=== PATIENT | female | born 1990 | race Caucasian/White ===

== ENCOUNTER 2022-08-18 17:12 | Emergency (ER) | payer OTHER ==
[2022-08-18] MEDS ORDERED: Sodium Chloride 0.9% 1000 ML 1,000 ML ONE (17:24)
[2022-08-18] MEDS ORDERED: Zofran 4 MG/2 ML VIAL ONE (17:24)
[2022-08-18] MEDS ORDERED: Quelicin Fliptop 200 MG/10 ML IJ ONE (17:31)
[2022-08-18] MEDS ORDERED: Amidate 20 MG/10 ML IV ONE (17:31)
[2022-08-18] MEDS ORDERED: Zemuron 100 MG/10 ML IJ ONE (17:31)
[2022-08-18] MEDS ORDERED: Propofol 1000 mg/100 ml Bottle 100 ML IV ONE (17:40)
[2022-08-18] MEDS: Propofol 1000 mg/100 ml Bottle 100 ML IV PRN ×2 (17:44→20:13)
[2022-08-18] MEDS ORDERED: Sodium Chloride 0.9% 1000 ML 1,000 ML IV STA (17:45)
[2022-08-18] MEDS ORDERED: VERSED 5 MG/5 ML IV ONE (17:48)
[2022-08-18 17:55] LABS: Absolute Neutrophil Ct (ANC) 10.96 x10^3/uL (1.4-6.9); BASOPHIL % 0.4 % (0.0-0.4); Basophil (Absolute #) 0.06 x10^3/uL (0-0.4); Eosinophil % 1.7 % (0.00-5.0); Eosinophil (Absolute #) 0.25 x10^3/uL (0-0.5); Hematocrit 42.1 % (35-47); Hemoglobin 13.6 g/dL (12.0-16.0); IMMATURE GRAN # 0.06 x10^3u/L (0.00-0.03); IMMATURE GRAN % 0.4 % (0.00-0.4); Lymphocyte (Absolute #) 2.08 x10^3/uL (1.0-4.6); Lymphocytes % 14.5 % (24.0-44.0); Mean Cell Volume 95.7 fL (78-100); Mean Corpuscular Hemoglobin 30.9 pg (26-32); Mean Corpuscular Hgb Concent. 32.3 g/dL (32-36); Mean Platelet Volume 8.7 fL (7.5-11.0); Monocyte (Absolute #) 0.96 x10^3/uL (0.0-1.3); Monocytes % 6.7 % (0.0-12.0); Neutrophil % 76.3 % (36.0-66.0); Platelet Count 490 x10^3/uL (150-450); Red Cell Distribution Width 11.9 % (11.5-14.0); White Blood Count 14.4 x10^3/uL (4.0-10.5)
[2022-08-18 18:01] LABS: HCG URINE TEST NEGATIVE (NEGATIVE)
[2022-08-18 18:02] LABS: ACETAMINOPHEN < 10 ug/ml (10-30); ALBUMIN 4.2 g/dL (3.5-5.0); ALKALINE PHOSPHATASE 72 U/L (38-126); ANION GAP 12.1 MEQ/L (5-15); BLOOD UREA NITROGEN 17 mg/dL (7-17); CHLORIDE 103 mmol/L (98-107); Calcium 8.9 mg/dL (8.4-10.2); Carbon Dioxide 29 mmol/L (22-30); Creatinine 1 0.86 mg/dL (0.52-1.04); EST GLOMERULAR FILTRATION RATE > 60.0 ML/MIN; ETHYL ALCOHOL < 10 mg/dL (0-10); Glucose 142 mg/dL (74-106); Potassium 4.4 mmol/L (3.5-5.1); SALICYLATE < 1.0 mg/dL (2-20); SGOT/AST 24 U/L (14-36); SGPT/ALT 19 U/L (0-35); SODIUM 140 mmol/L (137-145); Total Protein 7.9 g/dL (6.3-8.2)
[2022-08-18 18:04] LABS: Appearance Clear (Clear); Bacteria Many /HPF (None Seen); Bilirubin Negative (Negative); Blood Trace (Negative); Epithelial Cells Rare /HPF (None Seen); Glucose, Urine Negative (Negative); Ketones Trace (Negative); Leukocyte Esterase Small (Negative); Nitrite Positive (Negative); Ph 5.5 (4.6-8.0); Protein,Urine Dip Trace (Negative); RBC 0-2 /HPF (0-5); Specific Gravity 1.025 (1.005-1.030); Urobilinogen 0.2 mg/dL (0.2); WBC 21-50 /HPF (0-5)
--- NOTE | 2022-08-18 18:11 | XRAY ---
CLINICAL HISTORY:ET tube placement- patient came in for overdose; COMPARISON:None; TECHNIQUES:X-ray of the chest, AP upright portable view; FINDINGS: An endotracheal tube is seen, which is satisfactory in position. Mild patchy infiltrates are seen at the right lung base. Rest of both lungs are clear. Normal configuration of the mediastinum. The glory are normal in size and position. The cardiac size is normal. The costophrenic and cardiophrenic angles are clear. Unremarkable thoracic bony cage with no definite fractures detected. IMPRESSION: 1. Endotracheal tube is seen, which is satisfactory in position. 2. Mild patchy infiltrates seen at the right lung base, which could represent infection/aspiration. 3. Suggested clinical correlation and follow-up x-ray. Electronically Signed by: Boo Ochoa MD. 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
[2022-08-18 18:13] LABS: ADD URINE CULTURE? YES (NO)
[2022-08-18 18:14] LABS: Barbiturate,Urine NEGATIVE (NEGATIVE); Benzodiazepine,Urine POSITIVE (NEGATIVE); Cocaine,Urine NEGATIVE (NEGATIVE); Methadone,Urine NEGATIVE (NEGATIVE); Opiate,Urine NEGATIVE (NEGATIVE); PCP,Urine NEGATIVE (NEGATIVE); THC,Urine POSITIVE (NEGATIVE)
[2022-08-18 18:30] LABS: A-aADO2 -158; ABG HEMOGLOBIN 13.9; ABG POTASSIUM 4.3 (3.5-5.1); ABG SITE LEFT BRACHIAL; ARTERIAL BLD GAS O2 SATURATION 99.9 % (95-100); ARTERIAL BLOOD GAS BASE EXCESS 6.3 (-2.0-2.0); ARTERIAL BLOOD GAS FIO2 36 %; ARTERIAL BLOOD GAS PCO2 51 mmHg (35-45); ARTERIAL BLOOD GAS PO2 351 mmHg (75-100); ARTERIAL BLOOD GAS pH 7.41 (7.35-7.45); HCO3- 32.3 (22-28); HGB O2 SAT 97.2 g/dF (94-100); Methhemoglobin 0.7 % (1.4-1.5); paO2 pAO1 1.82
[2022-08-18] MEDS ORDERED: Levofloxacin 500MG/100ML D5W 500 MG/100 ML BAG IV STA (18:36)
[2022-08-18 18:41] LABS: A-aADO2 90; ABG HEMOGLOBIN 13.3; ABG POTASSIUM 4.2 (3.5-5.1); ABG SITE LEFT BRACHIAL; ARTERIAL BLD GAS O2 SATURATION 99.7 % (95-100); ARTERIAL BLD GAS TIDAL VOLUME 500 cc; ARTERIAL BLOOD GAS FIO2 50 %; ARTERIAL BLOOD GAS PCO2 53 mmHg (35-45); ARTERIAL BLOOD GAS PO2 200 mmHg (75-100); ARTERIAL BLOOD GAS VENT MODE A/C; ARTERIAL BLOOD GAS VENT RATE 14 /MIN; ARTERIAL BLOOD GAS pH 7.33 (7.35-7.45); CARBOXYHEMOGLOBIN 1.6 % THgb (0.0-6.9); HCO3- 27.9 (22-28); HGB O2 SAT 97.6 g/dF (94-100); Methhemoglobin 0.5 % (1.4-1.5); paO2 pAO1 0.69
[2022-08-18] MEDS ORDERED: CLINDAMYCIN-D5W 900 MG/50 ML*** 900 MG/50 ML BAG IV ONE (18:43)
[2022-08-18] MEDS ORDERED: Levofloxacin 500MG/100ML D5W 500 MG/100 ML BAG IV ONE (18:43)
[2022-08-18] MEDS ORDERED: Sodium Chloride 0.9% 1000 ML 1,000 ML IV SCH (18:45)
[2022-08-18] MEDS ORDERED: CLINDAMYCIN-D5W 900 MG/50 ML*** 900 MG/50 ML BAG IV STA (18:47)
[2022-08-18 18:57] LABS: Amphetamine,Urine POSITIVE (NEGATIVE)
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
[2022-08-18] MEDS ORDERED: Sodium Chloride 0.9% 150 ML 150 ML IV ONE (19:12)
[2022-08-18] MEDS ORDERED: FENTANYL 500 MCG/10 ML VIAL IV ONE (19:12)
[2022-08-18] MEDS ORDERED: SUBLIMAZE 100 MCG/2 ML IV STA (19:13)
[2022-08-18] MEDS ORDERED: FENTANYL 500 MCG/10 ML VIAL 1,500 MCG in Sodium Chloride 0.9% 150 ML 120 ML IV PRN (19:13)
[2022-08-18] MEDS ORDERED: VERSED 5 MG/5 ML ONE (20:06)
--- NOTE | 2022-08-18 20:07 | XRAY ---
CLINICAL HISTORY:AMS. R/O bleed; COMPARISON:None; TECHNIQUES:Axial non-contrast CT scan of the brain was performed from the skull base to the high parietal region. DLP 991.01 mGy*cm, CTDI: 53.9 mGy; FINDINGS: The visualized brain parenchyma shows a normal appearance. No focal parenchymal abnormalities are demonstrated. [place]-white matter differentiation is maintained. No midline shifts or deformity. No intracerebral or extra axial hematoma. Normal size and configuration of the cerebral ventricles. Normal CT appearance of the posterior fossa structures namely the cerebellar hemispheres, brainstem and cerebellar peduncles. The IACs are unremarkable. The cerebellum-pontine angles are clear. The pituitary gland, the pineal gland, the optic chiasm is unremarkable. The osseous structures in the skull base are unremarkable. Mild mucosal thickening in ethmoid air cells. The rest of the scanned paranasal sinuses are clear. There is mild fluid is seen at the posterior nasopharynx anterior to the tonsils with tiny air foci and bulky tonsils, underlying inflammatory process could be suggested, evaluation is limited due to lack of contrast, please correlate clinically. IMPRESSION: 1. Unremarkable non-enhanced CT study for the brain. 2. Mild fluid is seen at the posterior nasopharynx anterior to the tonsils with tiny air foci and bulky tonsils, underlying inflammatory process could be suggested, evaluation is limited due to lack of contrast, please correlate clinically. Electronically Signed by: Boo Ochoa MD. (08/18/2022 19:02:59 PATIENT SERVICES TECHNICIAN)
[2022-08-18 20:33] VITALS: PULSE 75; O2SAT 100
[2022-08-18 20:36] VITALS: BP 99/59
== END 2022-08-18 21:06 | disposition short-term general hospital (02) ==
LOC: ED 17:12
DX: T42.4X1A Poisoning by benzodiazepines, accidental (unintentional), initial encounter (principal); R41.82 Altered mental status, unspecified; F19.10 Other psychoactive substance abuse, uncomplicated; J69.0 Pneumonitis due to inhalation of food and vomit; N39.0 Urinary tract infection, site not specified; Z28.310 Unvaccinated for COVID-19; Z72.0 Tobacco use
CPT/HCPCS: 31500; 36000; 36415; 36600; 51702; 70450; 71045; 80053; 80143; 80179; 80307; 81001; 81025; 82077; 82375; 82550; 82803; 82947; 83605; 83735; 84484; 85025; 87077; 87086; 87186; 93005; 93041; 94002; 94799; 96360; 96361; 96365; 96366; 96367; 99285; 99291; J0330; J1956; J2250; J2405; J2704; J3010